=== PATIENT | male | born 1960 | race Caucasian/White ===

== ENCOUNTER 2017-08-04 17:45 | Emergency (ER) | payer OTHER ==
[2017-08-04 18:14] VITALS: BP 142/82
--- NOTE | 2017-08-04 18:35 | ED Physician Documentation ---
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 tip end of rt middle finger est 7mmtip-has been cleansed w betadine and shurclens bleening stopped applied dermabond allower to se3al and granulate-tip lost-tet tox 2 yrs ago Onset: hours (1610) Timing: still present Severity: mild Further Comments: yes (hemostasis attained but bled profusely at first-nurse had cleansed and aplied sterile telfa dressing) - ROS CONST: no problems EYES/ENT: none CVS/RESP: none GI/: none MS/SKIN/LYMPH: none NEURO/PSYCH: denies: headache, fainting, dizziness, tingling, numbness - PAST HX Past History: hypertension Other History: none, other (back hernia adenoids) Immunizations: UTD Allergies/Adverse Reactions: Allergies Allergy/AdvReac Type Severity Reaction Status Date / Time codeine Allergy Verified 08/04/17 18:13 Home Medications: Ambulatory Orders Medication Instructions Recorded Lisinopril [Zestril] 20 mg PO DAILY 08/04/17 Sertraline HCl [Zoloft] 25 mg PO DAILY 08/04/17 - SOCIAL HX Smoking History: less than 1 pack/day Alcohol Use: other (daily moderately) Drug Use: marijuana (occasionally) - FAMILY HX Family History: No - VITAL SIGNS Vital Signs: Vital Signs Temp Pulse Resp BP Pulse Ox 98 F 84 18 142/82 96 08/04/17 18:10 08/04/17 18:10 08/04/17 18:10 08/04/17 18:10 08/04/17 18:10 - REVIEWED ASSESSMENTS Nursing Assessment Reviewed: Yes Vitals Reviewed: Yes Procedures Wound Location: upper extremity Wound's Depth, Shape: superficial Wound Repaired With: Dermabond Sterile Dressing Applied?: Yes Splint Applied?: No Sling Applied?: No General Adult Physical Exam - PHYSICAL EXAM GENERAL APPEARANCE: mild distress EENT: eye inspection normal NECK: normal inspection RESPIRATORY: no resp distress, chest non-tender, breath sounds normal CVS: reg rate & rhythm, heart sounds normal ABDOMEN: soft, non-tender SKIN: warm/dry, normal color. No: cyanosis, diaphoresis, jaundice, mottled EXTREMITIES: non-tender, normal range of motion. No: no evidence of injury ( finger only) NEURO: oriented X3, CN's nml as tested, motor nml, sensation nml, mood/affect nml Discharge Clincal Impression: avulsion laceration tip rt mid finger Referrals: Primary Doctor,No [Primary Care Provider] - 2 Days Comments: keep dry clean Condition: Good Disposition: 01 HOME, SELF-CARE Decision to Admit: NO Decision Time: 18:43
== END 2017-08-04 18:53 | disposition home or self-care (01) ==
LOC: ED 17:45
DX: S61.212A Laceration without foreign body of right middle finger without damage to nail, initial encounter (principal); W26.0XXA Contact with knife, initial encounter; Y93.G3 Activity, cooking and baking; Y92.59 Other trade areas as the place of occurrence of the external cause; Y99.0 Civilian activity done for income or pay
CPT/HCPCS: 12002; 99283

== ENCOUNTER 2017-11-07 16:50 | Emergency (ER) | payer SELFPAY ==
[2017-11-07] MEDS ORDERED: KETOROLAC TROMETHAMINE 30 MG/1ML VIAL IVP ONE (17:07)
[2017-11-07] MEDS ORDERED: 0.9 % SODIUM CHLORIDE 1,000 ML IV ONE (17:11)
[2017-11-07] MEDS ORDERED: THIAMINE HCL 100 MG/ML 2ML VIAL ONE (17:11)
[2017-11-07] MEDS ORDERED: FOLIC ACID 5 MG/1 ML ONE (17:11)
[2017-11-07] MEDS ORDERED: MULTIVIT INFUSN,ADULT 1,VIT K 10 ML VIAL IV ONE (17:11)
[2017-11-07 17:16] LABS: BASOPHILS % 0.4 (0.0-1.5); EOSINOPHILS % 4.2 % (0.0-6.8); MEAN CORPUSCULAR HEMOGLOBIN 32.5 pg (28.0-34.0); MEAN CORPUSCULAR VOLUME 97.8 fl (80.0-100.0); NEUTROPHILS # 2.7 # k/uL (1.4-7.7)
[2017-11-07 17:33] LABS: eGFR (African) > 60; eGFR (Non-African) > 60
--- NOTE | 2017-11-07 17:56 | Diagnostic Imaging Report ---
JEMAL BRUMFIELD [facility] [id number] [facility] [address] [place], [place]. [address] Report Submission Date: Nov 07, 2017 5:46:26 PM CDT Patient Study Name: TANO NELSON Date: Nov 07, 2017 5:27:55 PM CDT Modality Type: CT\SR Gender: M Description: CT BRAIN W/O CONTRAST : 60 Institution: [facility] Physician: JEMAL BRUMFIELD Examination: CT head without contrast History: CT HEAD W/O, HEADACHES FOR A FEW WEEKS, WORSENING TODAY (Hx) Comparison exam: None available Technique: Noncontrast head CT protocol. Findings: Ventricles and sulci are consistent for patient age. Cerebrocerebellar parenchyma demonstrates periventricular low attenuation consistent with small vessel disease. No evidence for parenchymal hemorrhage. No evidence for mass or mass effect. No midline shift. No extra axial fluid collections. Partial visualization of the paranasal sinuses demonstrates significant mucous of calcification. Mastoid air cells, orbits, skull and scalp without gross irregularity. Impression: Age related changes. No acute parenchymal process. No hemorrhage. Significant paranasal sinus mucus opacification. Electronically signed on Nov 07, 2017 5:46:26 PM CDT by: Abraham MOLINA
[2017-11-07] MEDS ORDERED: THIAMINE HCL 100 MG, MULTIVIT INFUSN,ADULT 1,VIT K 10 ML, FOLIC ACID 5 MG in 0.9 % SODI... IV SCH (18:00)
[2017-11-08 01:12] VITALS: BP 145/62
--- NOTE | 2017-11-08 05:19 | ED Physician Documentation ---
Headache - HISTORIAN Historian: patient - HPI Stated Complaint: Severe VERAS to Bilateral temples...initially started 1 wk ago, intermittent, Chief Complaint: Headache Additional Information: Severe off and on for last 3 weeks. Happened again today, head rushes, started this am. Onset: days ago (21) Timing: abrupt, intermittent episodes New Gradual Onset: Yes Exposure To: none Severity: moderate Quality: throbbing Associated Symptoms: denies: fever, chills, sweating, problems with vision, sensitivity to light, nausea, vomiting, neck pain, stiffness, speech problems, weakness, trouble walking, tingling, numbness, dizziness, light-headedness Preceding Symptoms: denies: visual disturbance, scotoma, typical of prior aura(s ) Exacerbated By: denies: light, noise, movement Further Comments: no - ROS NEURO/PSYCH: denies: confusion, anxiety, depression, fainting EYES/ENT: denies: sore throat, difficulty swallowing, sinus pain, drainage CVS/RESP: none GI/: denies: abdominal pain, diarrhea, problems urinating, incontinence MS/SKIN/LYMPH: denies: muscle aches, back pain, rash, skin lesions, swollen glands all systems neg except as marked: Yes - PAST HX Medical History: hypertension Surgical History: no surgical history Immunizations: referred to PCP Allergies/Adverse Reactions: Allergies Allergy/AdvReac Type Severity Reaction Status Date / Time codeine Allergy Verified 11/07/17 17:39 Home Medications: Ambulatory Orders Medication Instructions Recorded Lisinopril [Zestril] 20 mg PO DAILY 08/04/17 Sertraline HCl [Zoloft] 25 mg PO DAILY 08/04/17 - SOCIAL HX Smoking History: cigarettes Alcohol Use: heavy Drug Use: other (former use) - Family HX Family History: none - VITAL SIGNS Vital Signs: Vital Signs Temp Pulse Resp BP Pulse Ox 99.2 F 72 16 145/62 94 11/07/17 16:50 11/08/17 01:09 11/08/17 01:09 11/08/17 01:11/07/17 16:50 - REVIEWED ASSESSMENTS Nursing Assessment Reviewed: Yes Vitals Reviewed: Yes Progress - Results/Orders Results/Orders: ct head, uds, ua, pt, cmp, cbc, etoh ordered - Progress Progress: pt. given banana bag and 30 mg ketoralac iv in er with significant improvement in headache pain Critical Care Note - Critical Care Note Total Time (mins): 0 ED Results Lab/Radiology - Lab Results Lab Results: Lab Results 11/07/17 11/07/17 11/07/17 17:10 17:10 17:10 WBC 5.80 K/ul K/ul (4.00-12.00) RBC 4.40 M/ul M/ul (3.90-5.20) Hgb 14.3 g/dL g/dL (12.0-18.0) Hct 43.0 % % (37.0-53.0) MCV 97.8 fl fl (80.0-100.0) MCH 32.5 pg pg (28.0-34.0) MCHC 33.2 g/dL g/dL (30.0-36.0) RDW 12.8 % % (11.3-14.3) Plt Count 167 K/mm3 K/mm3 (130-400) Neut % (Auto) 46.0 % % (39.0-79.0) Lymph % (Auto) 40.6 % % (16.0-50.0) [place] % (Auto) 6.0 % % (0.0-11.0) Eos % (Auto) 4.2 % % (0.0-6.8) Baso % (Auto) 0.4 (0.0-1.5) Neut # (Auto) 2.7 # k/uL # k/uL (1.4-7.7) Lymph # (Auto) 2.4 # k/uL # k/uL (0.6-4.0) [place] # (Auto) 0.4 # k/uL # k/uL (0.0-0.9) Eos # (Auto) 0.2 # k/uL # k/uL (0.0-0.6) Baso # (Auto) 0.0 # k/uL # k/uL (0.0-0.5) Reactive Lymphs % 2.8 % % (0.0-5.0) Reactive Lymphs # 0.2 # k/uL # k/uL (0.0-0.8) PT 10.4 Seconds Seconds (9.4-11.6) INR 0.99 (0.9-1.2) APTT 23.7 Seconds L Seconds (24.5-32.8) Sodium 145 mmol/L mmol/L (136-145) Potassium 4.2 mmol/L mmol/L (3.5-5.1) Chloride 109 mmol/L H mmol/L (98-107) Carbon Dioxide 23 mmol/L mmol/L (22-30) BUN 19 mg/dL mg/dL (9-20) Creatinine 0.80 mg/dL mg/dL (0.66-1.25) Est GFR ( Amer) > 60 (60 - ) Est GFR (Non-Af Amer) > 60 (60 - ) Glucose 111 mg/dL H mg/dL (74-106) Calcium 9.2 mg/dL mg/dL (8.4-10.2) Total Bilirubin 1.0 mg/dL mg/dL (0.2-1.3) AST 16 U/L U/L (15-46) ALT 22 U/L U/L (13-69) Alkaline Phosphatase 113 U/L U/L (38-126) Total Protein 7.6 g/dL g/dL (6.3-8.2) Albumin 4.6 g/dL g/dL (3.5-5.0) Ethyl Alcohol 222.2 mg/dL H mg/dL (0.0-10.0) - Radiology Radiology Impressions: ct head shows paranasal sinus mucous - Orders Orders: ED Orders Category Date Time Status Place IV Lock 1T Care 11/07/17 17:[address] BRAIN W/O CONTRAST Stat Exams 11/07/17 Completed ALCOHOL MEDICAL USE ONLY Routine Lab 11/07/17 17:10 Completed CBC/PLATELET/DIFF Routine Lab 11/07/17 17:10 Completed CMP Routine Lab 11/07/17 17:10 Completed DRUG SCREEN URINE MEDICAL ONLY Routine Lab 11/07/17 Ordered PT-INR Routine Lab 11/07/17 17:10 Completed PTT Routine Lab 11/07/17 17:10 Completed URINALYSIS Routine Lab 11/07/17 Ordered 0.9 % Sodium Chloride [Normal Saline] 1,000 ml Med 11/07/17 17:11 Discontinued IV .STK-MED Folic Acid [Folvite] Med 11/07/17 17:11 Discontinued 5 mg .ROUTE .STK-MED ONE Ketorolac Tromethamine [Toradol] Med 11/07/17 17:07 Discontinued 30 mg IVP NOW ONE Multivit Infusn,Adult 1,Vit K [M.v.i. Adult] Med 11/07/17 17:11 Discontinued 10 ml IV .STK-MED ONE Thiamine HCl Med 11/07/17 17:11 Discontinued 200 mg .ROUTE .STK-MED ONE Thiamine HCl 100 mg Med 11/07/17 18:00 Discontinued Multivit Infusn,Adult 1,Vit K [M.v.i. Adult] 10 ml Folic Acid [Folvite] 5 mg 0.9 % Sodium Chloride [Normal Saline] 1,000 ml IV 1T Headache Physical Exam - EXAM General Appearance: alert, moderate distress EENT: no facial swelling, eyes nml inspection, PERRL. No: tender temporal artery, pain over sinuses Neck: normal inspection, thyroid normal, supple Respiratory: no resp distress, chest non-tender, breath sounds normal CVS: reg. rate & rhythm, heart sounds nml, murmur Abdomen: non-tender, no organomegaly, nml bowel sounds, no distention Skin: color nml, no rash Extremitites: non-tender, normal range of motion, no evidence of injury - NEURO/PSYCH Higher Functions: alert, oriented x3, nml speech, mood/affect nml Cranial: nml as tested, no evidence of acute CVA Cerebellar: nml as tested Sensorimotor: motor nml, sensation nml Discharge Clincal Impression: Sinusitis Qualifiers: Sinusitis location: unspecified location Chronicity: acute Recurrence: non- recurrent Qualified Code(s): J01.90 - Acute sinusitis, unspecified Referrals: Sander Peres MD [Primary Care Provider] - 2 Days Comments: Discharged with recommendation for Netti Pot usage. Refuses script for Flonase. Condition: Stable Disposition: 01 HOME, SELF-CARE Decision to Admit: NO Decision Time: 13:05
== END 2017-11-07 18:35 | disposition home or self-care (01) ==
LOC: ED 16:50
DX: J01.90 Acute sinusitis, unspecified (principal)
CPT/HCPCS: 70450; 80053; 80320; 85025; 85610; 85730; 96365; 96375; 99284; J1885; J3411; J3490; J7030; G0480; S1016